=== PATIENT | female | born 1970 | race Caucasian/White ===

== ENCOUNTER 2018-10-04 08:27 | Emergency (ER) | payer MEDICAID ==
[~2018-10-04] VITALS: Ht 157.5 cm; Wt 61.2 kg
[2018-10-04] MEDS ORDERED: MONT5TAB14 PO (08:37)
--- NOTE | 2018-10-04 08:40 | NUR ---
JILLIAN Vasquez at the bedside for MSE.
[2018-10-04 08:47] LABS: *BILIRUBIN,URIN NEGATIVE (NEGATIVE); *BLOOD, URINE 2+ (NEGATIVE); *CLARITY,URINE CLOUDY (CLEAR); *COLOR,URINE YELLOW (YELLOW); *KETONES,URINE NEGATIVE (NEGATIVE); *UROBILINOGEN,URINE 0.2 E.U./dl (NORMAL); LEUKOCYTE ESTERASE ,URINE 3+ (NEGATIVE); NITRITE, URINE POSITIVE (NEGATIVE); PH,URINE 5.5 (5.0-8.0); UGLUCOSE NEGATIVE (NEGATIVE)
[2018-10-04 08:53] VITALS: BP 108/69
--- NOTE | 2018-10-04 08:54 | NUR ---
Patient discharged to home in stable conditon. Written and verbal after care instructions given. Patient verbalizes understanding of instructions.
[2018-10-04 08:56] LABS: BACTERIA,URINE MANY /HPF (NONE SEEN); SQUAMOUS EPITHELIAL CELL,UR MODERATE /HPF (NONE SEEN); WBC,URINE TNTC /HPF (0-3)
== END 2018-10-04 08:54 | disposition home or self-care (01) ==
LOC: ER 08:27
DX: N39.0 Urinary tract infection, site not specified (principal); J45.909 Unspecified asthma, uncomplicated; Z79.899 Other long term (current) drug therapy
CPT/HCPCS: 87077; 87086; A4663

== ENCOUNTER 2018-10-31 15:59 | Emergency (ER) | payer BC, MEDICAID ==
[~2018-10-31] VITALS: Ht 157.5 cm; Wt 61.2 kg
[~2018-10-31 15:59] MED LIST: MONT5TAB14 PO
--- NOTE | 2018-10-31 16:16 | NUR ---
Dr Syed at the bedside for MSE.
--- NOTE | 2018-10-31 16:30 | NUR ---
Patient discharged to home in stable conditon. Written and verbal after care instructions given. Patient verbalizes understanding of instructions.
[2018-10-31 16:32] VITALS: BP 107/74
== END 2018-10-31 16:33 | disposition home or self-care (01) ==
LOC: ER 16:02
DX: B35.8 Other dermatophytoses (principal); J45.909 Unspecified asthma, uncomplicated; Z79.899 Other long term (current) drug therapy
CPT/HCPCS: A4663

== ENCOUNTER 2022-08-13 15:24 | Emergency (ER) | payer BC ==
[~2022-08-13] VITALS: Ht 162.6 cm; Wt 59.0 kg
--- NOTE | 2022-08-13 15:36 | NUR ---
Pt seen by MD for bedside eval. Safety measures in place. Will continue to monitor.
--- NOTE | 2022-08-13 16:13 | NUR ---
Splinting with cotton ball and tape performed. Safety measures in place. Will continue to monitor.
[2022-08-13] MEDS ORDERED: IBUP-1955 PO (16:15)
--- NOTE | 2022-08-13 16:29 | NUR ---
Patient discharged to home in stable condition. Written and verbal after care instructions given. Patient verbalizes understanding of instructions. Stressed follow up or return to ER for worsening s/s.
[2022-08-13 16:30] VITALS: BP 105/66
== END 2022-08-13 16:31 | disposition home or self-care (01) ==
LOC: ER 15:24
DX: S92.532A Displaced fracture of distal phalanx of left lesser toe(s), initial encounter for closed fracture (principal); J45.909 Unspecified asthma, uncomplicated; Z79.899 Other long term (current) drug therapy; W20.8XXA Other cause of strike by thrown, projected or falling object, initial encounter; Y93.89 Activity, other specified; Y92.89 Other specified places as the place of occurrence of the external cause; Y99.8 Other external cause status
CPT/HCPCS: 73660; A4663